=== PATIENT | male | born 1995 | race Two or more races ===

== ENCOUNTER 2019-11-08 14:26 | Emergency (ER) | payer BC ==
[~2019-11-08] VITALS: Ht 160 cm; Wt 60.0 kg
[2019-11-08] MEDS ORDERED: IV NORMAL SALINE 1000ML BAG 1,000 ML IV ONE (14:45)
--- NOTE | 2019-11-08 14:54 | PHYS DOC ---
General Adult EDM: Chief Complaint: ANXIETY/PANIC ATTACK HPI: HPI: Patient is a 23 year old male, brought to the emergency department by [facility] with complaints of his heart beating fast. Patient states that he has had problems with his heart beating fast for the last 3 months. In addition to palpitations the patient reports shortness of breath. He denies any chest pain, abdominal pain, nausea, vomiting, diarrhea, cough, fever, or diaphoresis. Patient admits that he does drink alcohol daily at least half a pint of whiskey. He last drank alcohol last night. Patient states he was diagnosed with some heart problems several years ago and was prescribed medi cation but stopped taking that medication 6 months ago because his primary care provider moved away. Patient states he is not sure what that medication or condition is. He reports that he smokes 2-3 cigarettes a day, he denies any elicit drug use. Review of Systems: Review of Systems: Constitutional: Denies fever or chills. [] Eyes: Denies change in visual acuity. [] HENT: Denies nasal congestion or sore throat. [] Respiratory: Denies cough or shortness of breath. [] Cardiovascular: Denies chest pain or edema; see HPI [] GI: Denies abdominal pain, nausea, vomiting, bloody stools or diarrhea. [] : Denies dysuria. [] Musculoskeletal: Denies back pain or joint pain. [] Integument: Denies rash. [] Neurologic: Denies headache, focal weakness or sensory changes. [] Endocrine: Denies polyuria or polydipsia. [] Lymphatic: Denies swollen glands. [] Psychiatric: Denies depression or anxiety. [] Heart Score: Risk Factors: Risk Factors: DM, Current or recent (<one month) smoker, HTN, HLP, family history of CAD, obesity. Risk Scores: Score 0 - 3: 2.5% MACE over next 6 weeks - Discharge Home Score 4 - 6: 20.3% MACE over next 6 weeks - Admit for Clinical Observation Score 7 - 10: 72.7% MACE over next 6 weeks - Early Invasive Strategies Current Medications: Current Medications Medications (Trade) Dose Ordered Sig/Daiana Start Time Stop Time Status Last Admin Dose Admin Sodium Chloride 1,000 ml @ 1,000 mls/hr 1X ONCE 11/08/19 14:45 11/08/19 15:44 Allergies: Allergies: Allergies Coded Allergies Type Severity Reaction Last Updated Verified No Known Drug Allergies 11/08/19 No Physical Exam: PE: Constitutional: Well developed, well nourished, no acute distress, non-toxic appearance, appears anxious. [] HENT: Normocephalic, atraumatic, bilateral external ears normal, nose normal. [] Eyes: PERRLA, EOMI, conjunctiva normal, no discharge. [] Neck: Normal range of motion, no stridor. [] Cardiovascular:Heart rate regular tachycardic rhythm, no murmur [] Lungs & Thorax: Bilateral breath sounds clear to auscultation, Respirations even and unlabored, no retractions, no respiratory distress [] Abdomen: soft, no tenderness, no masses, no pulsatile masses. [] Skin: Warm, dry, no erythema, no rash. [] Back: No tenderness Extremities: No cyanosis, no clubbing, ROM intact, no edema. [] Neurologic: Alert and oriented X 3, no focal deficits noted. [] Psychologic: Affect normal, judgement normal, mood normal. [] EKG: EK-sinus tachycardia, rate of 112, otherwise normal, no STEMI read by Dr. Flores [][] Radiology/Procedures: Radiology/Procedures: PROCEDURE: CHEST PA & LATERAL INDICATION: Shortness of air COMPARISON: None. FINDINGS: 2 view of chest obtained. Mild hazy opacity in the retrocardiac region. Cardiac silhouette is unremarkable. IMPRESSION: * Minimal hazy opacity in retrocardiac region. Could be secondary to atelectasis or early infiltrate [] Course & Med Decision Making: Course & Med Decision Making Pertinent Labs and Imaging studies reviewed. (See chart for details) Patient is a 23-year-old male who presents to the emergency department with complaints of palpitations and shortness of breath. His EKG revealed no acute findings. CBC is unremarkable, d-dimer is within normal limits, CMP reveals a potassium of 3.2, magnesium of 1.6, total bilirubin of 1.2, AST of 209, ALT of 101, troponin negative Urinalysis is unremarkable; drug screen is positive for cocaine, alcohol is less than 10. CXR reveals minimal hazy opacity in retrocardiac region. Could be secondary to atelectasis or early infiltrate VSS throughout visit. PT reports feeling better after IVF and ativan, Pt was given 40 meq of KCL and 400 mg of magnesium for hypokalemia and hypomagnesia I encouraged pt to follow up with PCP this week, return to the ER if symptoms worsen or fever develops. PT verbalized an understanding of home care, medications, follow-up, and return to ED instructions and was in agreement with the plan of care. [] Dragon Disclaimer: Dragon Disclaimer: This electronic medical record was generated, in whole or in part, using a voice recognition dictation system. Departure Departure Impression: Primary Impression: Heart palpitations Additional Impressions: Hypokalemia Hypomagnesemia Disposition: 01 HOME, SELF-CARE Condition: STABLE Patient Instructions: Hypokalemia-Brief, Palpitations, [id number] Additional Instructions: Follow up with a primary care doctor for further evaluation of your decreased appetite and palpitations, use the list provided to find a primary care doctor. Return to the ER if your symptoms worsen or you develop a fever. RICARDO BRANHAM [employer] MANAGER Nov 08, 2019 14:54
[2019-11-08 15:07] LABS: BASO % 1 % (0-3); EOS % 0 % (0-3); HEMATOCRIT 45.1 % (39.0-53.0); HEMOGLOBIN 15.5 g/dL (13.0-17.5); LYMPH # 1.6 x10^3/uL (1.0-4.8); LYMPH % 23 % (24-48); MEAN CORPUSCULAR HEMOGLOBIN 32 pg (25-35); MEAN CORPUSCULAR HGB CONC 34 g/dL (31-37); MEAN CORPUSCULAR VOLUME 93 fL (79-100); MONO # 0.4 x10^3/uL (0.0-1.1); MONO % 7 % (0-9); NEUT # 4.7 x10^3/uL (1.8-7.7); NEUT % 70 % (31-73); PLATELET COUNT 277 x10^3/uL (140-400); RED BLOOD COUNT 4.83 x10^6/uL (4.30-5.70); RED CELL DISTRIBUTION WIDTH 13.1 % (11.5-14.5); WHITE BLOOD COUNT 6.8 x10^3/uL (4.0-11.0)
[2019-11-08 15:17] LABS: CALCIUM 9.3 mg/dL (8.5-10.1); CREATININE 0.9 mg/dL (0.7-1.3); GFR 103.7; POTASSIUM 3.2 mmol/L (3.5-5.1)
[2019-11-08 15:25] LABS: ALBUMIN 4.2 g/dL (3.4-5.0); ALBUMIN/GLOBULIN RATIO 1.1 (1.0-1.7); MAGNESIUM 1.6 mg/dL (1.8-2.4); TOTAL BILIRUBIN 1.2 mg/dL (0.2-1.0)
[2019-11-08 15:32] LABS: CREATINE KINASE 115 U/L (39-308)
[2019-11-08] MEDS ORDERED: NAPROXEN 500 MG TABLET PO STA (16:18)
--- NOTE | 2019-11-08 16:42 | RAD ---
INDICATION: Shortness of air COMPARISON: None. FINDINGS: 2 view of chest obtained. Mild hazy opacity in the retrocardiac region. Cardiac silhouette is unremarkable. IMPRESSION: * Minimal hazy opacity in retrocardiac region. Could be secondary to atelectasis or early infiltrate Electronically signed by: Ranjan Ulloa MD (11/08/2019 4:40 PM) [id number]
[2019-11-08] MEDS ORDERED: POTASSIUM CHLORIDE 20 MEQ TABLET.ER. PO ONE (16:45)
[2019-11-08] MEDS ORDERED: MAGNESIUM OXIDE 400 MG TABLET PO SCH (16:45)
[2019-11-08 16:46] VITALS: BP 133/80
[2019-11-08 17:02] LABS: BARBITURATES NEG (NEG); BENZODIAZEPINES NEG (NEG); BILIRUBIN,URINE NEGATIVE (NEG); CANNABINOIDS NEG (NEG); CLARITY,URINE CLEAR; COCAINE POS (NEG); COLOR,URINE YELLOW; METHADONE NEG (NEG); NITRITE,URINE NEGATIVE (NEG); OPIATES NEG (NEG); PHENCYCLIDINE NEG (NEG); PROTEIN,URINE NEGATIVE (NEG-TRACE); UROBILINOGEN,URINE 0.2 mg/dL (0.2 mg/dL)
[2019-11-08 17:08] LABS: AMPHETAMINE/METHAMPHETAMINE NEG (NEG)
[2019-11-08 17:10] LABS: AMORPHOUS SEDIMENT,UR PRESENT /HPF; HYALINE CASTS, URINE FEW /HPF
[2019-11-08 17:11] LABS: BACTERIA,URINE 0 /HPF (0-FEW); RBC,URINE 0 /HPF (0-2); WBC,URINE 0 /HPF (0-4)
--- NOTE | 2019-11-09 11:15 | EKG ---
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
== END 2019-11-08 18:06 | disposition home or self-care (01) ==
LOC: ER 14:26 → EDBD 14:26 → ER 18:06
DX: R00.2 Palpitations (principal); E83.42 Hypomagnesemia; E87.6 Hypokalemia; R06.02 Shortness of breath; F17.210 Nicotine dependence, cigarettes, uncomplicated
CPT/HCPCS: 36415; 71046; 80053; 80307; 81001; 82553; 83735; 84484; 85025; 85379; 93005; 96374; 99285; G0480; J2060; J7030

== ENCOUNTER 2019-11-14 13:03 | Emergency (ER) | payer BC ==
[~2019-11-14] VITALS: Ht 162.6 cm; Wt 57.2 kg
[2019-11-14] MEDS ORDERED: ALPR0.254 PO (13:33)
--- NOTE | 2019-11-14 13:33 | PHYS DOC ---
Past Medical History Past Medical History: No Pertinent History Smoking Status: Current Some Day Smoker Alcohol Use: Occasionally General Adult EDM: Chief Complaint: DIZZY/LIGHT HEADED HPI: HPI: Patient is a 24-year-old otherwise healthy male who presents stating he has a hard time getting a deep breath. He does admit to being very anxious. He states he feels like his heart is beating fast he cannot get a deep breath and sometimes it even hurts when he takes a deep breath. He denies any dyspnea on exertion. He denies fever chills or sweats. He denies any upper respiratory symptoms such as a cough or congestion. He states he has been seen here once before for this and was supposed to get something for anxiety but never did. [] Review of Systems: Review of Systems: Constitutional: Denies fever or chills. [] Eyes: Denies change in visual acuity. [] HENT: Denies nasal congestion or sore throat. [] Respiratory: Reports that he has a difficult time getting a deep breath [] Cardiovascular: Palpitations as described in the HPI [] GI: Denies abdominal pain, nausea, vomiting, bloody stools or diarrhea. [] : Denies dysuria. [] Musculoskeletal: Denies back pain or joint pain. [] Integument: Denies rash. [] Neurologic: Denies headache, focal weakness or sensory changes. [] Endocrine: Denies polyuria or polydipsia. [] Lymphatic: Denies swollen glands. [] Psychiatric: Reports anxiety [] Heart Score: Risk Factors: Risk Factors: DM, Current or recent (<one month) smoker, HTN, HLP, family history of CAD, obesity. Risk Scores: Score 0 - 3: 2.5% MACE over next 6 weeks - Discharge Home Score 4 - 6: 20.3% MACE over next 6 weeks - Admit for Clinical Observation Score 7 - 10: 72.7% MACE over next 6 weeks - Early Invasive Strategies Allergies: Allergies: Allergies Coded Allergies Type Severity Reaction Last Updated Verified No Known Drug Allergies 11/08/19 No Physical Exam: PE: Constitutional: Well developed, well nourished, no acute distress, non-toxic appearance. [] HENT: Normocephalic, atraumatic, bilateral external ears normal, oropharynx moist, no oral exudates, nose normal. [] Eyes: PERRLA, EOMI, conjunctiva normal, no discharge. [] Neck: Normal range of motion, no tenderness, supple, no stridor. [] Cardiovascular:Heart rate regular rhythm, no murmur [] Lungs & Thorax: Bilateral breath sounds clear to auscultation [] Abdomen: Bowel sounds normal, soft, no tenderness, no masses, no pulsatile masses. [] Skin: Warm, dry, no erythema, no rash. [] Back: No tenderness, no CVA tenderness. [] Extremities: No tenderness, no cyanosis, no clubbing, ROM intact, no edema. [] Neurologic: Alert and oriented X 3, normal motor function, normal sensory function, no focal deficits noted. [] Psychologic: Extremely anxious. [] EKG: EKG: [] Radiology/Procedures: Radiology/Procedures: [] Course & Med Decision Making: Course & Med Decision Making Pertinent Labs and Imaging studies reviewed. (See chart for details) [ED course: Evaluation reveals a 24-year-old male that is extremely anxious. We will give him some alprazolam during his stay in the department here I will also give him a couple to take at home. I have encouraged him to follow-up with a primary care physician for ongoing care of his anxiety disorder] Richar Disclaimer: Richar Disclaimer: This electronic medical record was generated, in whole or in part, using a voice recognition dictation system. Departure Departure Impression: Primary Impression: Heart palpitations Additional Impression: Anxiety about health Disposition: 01 HOME, SELF-CARE Condition: STABLE Referrals: NO PCP (PCP) Patient Instructions: Anxiety and Panic Attacks, Palpitations Additional Instructions: It is very important that you follow-up with your primary care physician in the next 2 to 3 days for recheck. Scripts Alprazolam (ALPRAZOLAM) 0.25 Mg Tablet 0.5 MG PO PRN Q6HRS PRN for ANXIETY / AGITATION, #10 TAB 0 Refills Prov: KELLY PRECIADO DO 11/14/19 KELLY PRECIADO DO November 14, 2019 13:33
[2019-11-14] MEDS: ALPRAZolam 0.5 MG TABLET PO ONE (13:46)
[2019-11-14 14:05] VITALS: BP 145/71
== END 2019-11-14 14:05 | disposition home or self-care (01) ==
LOC: ER 13:03
DX: R00.2 Palpitations (principal); F41.9 Anxiety disorder, unspecified; F17.200 Nicotine dependence, unspecified, uncomplicated
CPT/HCPCS: 99283

== ENCOUNTER 2019-11-19 12:07 | Emergency (ER) | payer BC ==
[~2019-11-19] VITALS: Ht 162.6 cm; Wt 57.2 kg
[~2019-11-19 12:07] MED LIST: ALPR0.254 PO
[2019-11-19 12:45] VITALS: BP 153/102
--- NOTE | 2019-11-19 15:02 | PHYS DOC ---
Past Medical History Past Medical History: No Pertinent History Past Surgical History: No Surgical History Smoking Status: Never Smoker Alcohol Use: Occasionally Adult General Chief Complaint Chief Complaint: OTHER COMPLAINTS HPI HPI Patient is a 24 year old male with history of anxiety presents with palpitations throughout the day with associated chest pain. Patient was seen in the emergency department 5 days ago and prescribed Xanax. States Xanax has helped but he is now. Patient's not yet established with a primary care provider is requesting a refill. States chest pain is worse after eating. No shortness of breath nausea vomiting sweats. No abdominal pain. No HI/SI/Hallucinations/delusions/paranoia. No other acute symptoms or complaints. [] Review of Systems Review of Systems ROS as per HPI All other systems were reviewed and found to be within normal limits, except as documented in this note. Allergies Allergies Allergies Coded Allergies Type Severity Reaction Last Updated Verified No Known Drug Allergies 11/08/19 No Physical Exam Physical Exam Constitutional: Well developed, well nourished, no acute distress, non-toxic appearance. [] HENT: Normocephalic, atraumatic, bilateral external ears normal, oropharynx moist, no oral exudates, nose normal. [] Eyes: PERRLA, EOMI, conjunctiva normal, no discharge. [] Neck: Normal range of motion, no tenderness, supple, no stridor. [] Cardiovascular:Heart rate regular rhythm, no murmur [] Lungs & Thorax: Bilateral breath sounds clear to auscultation [] Abdomen: Bowel sounds normal, soft, no tenderness. [] Skin: Warm, dry. [] Back: No tenderness. [] Extremities: No tenderness. [] Neurologic: Alert and oriented X 3, normal motor function, normal sensory function, no focal deficits noted. [] Psychologic: Affect anxious, judgement normal, mood normal. [] Current Patient Data Vital Signs Vital Signs Date Time Temp Pulse Resp B/P (MAP) Pulse Ox O2 Delivery O2 Flow Rate FiO2 11/19/19 12:45 98.3 87 18 153/102 (119) 98 Room Air 98.3 EKG EKG [] Radiology/Procedures Radiology/Procedures [] Course & Med Decision Making Course & Med Decision Making Pertinent Labs and Imaging studies reviewed. (See chart for details) [Patient instructed to follow-up with his PCP for further management of anxiety.] Dragon Disclaimer Dragon Disclaimer This electronic medical record was generated, in whole or in part, using a voice recognition dictation system. Departure Departure Impression: Primary Impression: Medication requested by patient but not prescribed or administ... Disposition: HOME, SELF-CARE Condition: STABLE Patient Instructions: Medication Refill, Emergency Department Additional Instructions: Please follow up with you local PCP for management of your anxiety. JORDON AWAD DO November 19, 2019 15:02
== END 2019-11-19 14:04 | disposition home or self-care (01) ==
LOC: ER 12:07
DX: R07.89 Other chest pain (principal); R00.2 Palpitations
CPT/HCPCS: 99281

== ENCOUNTER → 2020-01-05 | Outpatient (CLI) | payer BC ==
--- NOTE | 2020-01-05 16:03 | KCIC ---
EXAM: CHEST PA LATERAL INDICATION: Reason: UPPER CHEST PAIN, SOA, X'S 2 MONTHS / Spl. Instructions: / History: . TECHNIQUE: PA and lateral views COMPARISON: 11/08/2019 chest x-ray FINDINGS: The heart size is normal. The great vessels appear unremarkable. There is no hilar or mediastinal mass. The lungs are clear. There is no pleural effusion or pneumothorax. There are no significant osseous abnormalities. IMPRESSION: No active cardiopulmonary disease. Electronically signed by: Alicia Weiss MD (01/05/2020 4:00 PM) [id number]
== END | disposition home or self-care (01) ==
LOC: KCIC 15:05
PROVIDERS: ATTEND Family Medicine
DX: R07.89 Other chest pain (principal)
CPT/HCPCS: 71046

== ENCOUNTER 2020-02-19 23:55 | Emergency (ER) | payer BC ==
[~2020-02-19] VITALS: Ht 162.6 cm; Wt 57.2 kg
--- NOTE | 2020-02-20 01:41 | PHYS DOC ---
Past Medical History Past Medical History: Hypertension, Other Additional Past Medical Histor: PALPITATIONS Past Surgical History: No Surgical History Smoking Status: Never Smoker Alcohol Use: None General Adult EDM: Chief Complaint: Palpitations HPI: HPI: Patient is a 24 year old male who presents with complaints of palpitations. Patient states that for months now he has been having intermittent episodes of palpitations. He describes them as intermittent, lasting anywhere from a few minutes to as much as 30minutes and not associated with syncope. Patient reports that he has been seen by Dr. Evans and had a Holter monitor placed but has not had the report returned to him. He thought that the Holter was not on long enough to be diagnostic. This evening patient had another episode of palpitations. Patient stated that he also had a sense of doom, felt hot and got nauseated. Patient reports however this resolved and at this time he is without any pain, shortness of breath or palpitations. Review of Systems: Review of Systems: Constitutional: Denies fever or chills. [] Eyes: Denies change in visual acuity. [] HENT: Denies nasal congestion or sore throat. [] Respiratory: Denies cough or shortness of breath. [] Cardiovascular: Denies chest pain or edema. [] GI: Denies abdominal pain, nausea, vomiting, bloody stools or diarrhea. [] : Denies dysuria. [] Musculoskeletal: Denies back pain or joint pain. [] Integument: Denies rash. [] Neurologic: Denies headache, focal weakness or sensory changes. [] Endocrine: Denies polyuria or polydipsia. [] Lymphatic: Denies swollen glands. [] Psychiatric: Denies depression or anxiety. [] Heart Score: Risk Factors: Risk Factors: DM, Current or recent (<one month) smoker, HTN, HLP, family history of CAD, obesity. Risk Scores: Score 0 - 3: 2.5% MACE over next 6 weeks - Discharge Home Score 4 - 6: 20.3% MACE over next 6 weeks - Admit for Clinical Observation Score 7 - 10: 72.7% MACE over next 6 weeks - Early Invasive Strategies Allergies: Allergies: Allergies Coded Allergies Type Severity Reaction Last Updated Verified No Known Drug Allergies 11/08/19 No Physical Exam: PE: Constitutional: Well developed, well nourished, no acute distress, non-toxic appearance. [] HENT: Normocephalic, atraumatic, bilateral external ears normal, oropharynx moist, no oral exudates, nose normal. [] Eyes: PERRLA, EOMI, conjunctiva normal, no discharge. [] Neck: Normal range of motion, no tenderness, supple, no stridor. [] Cardiovascular:Heart rate regular rhythm, no murmur [] Lungs & Thorax: Bilateral breath sounds clear to auscultation [] Abdomen: Bowel sounds normal, soft, no tenderness, no masses, no pulsatile masses. [] Skin: Warm, dry, no erythema, no rash. [] Back: No tenderness, no CVA tenderness. [] Extremities: No tenderness, no cyanosis, no clubbing, ROM intact, no edema. [] Neurologic: Alert and oriented X 3, normal motor function, normal sensory function, no focal deficits noted. [] Psychologic: Affect flat, judgement normal, mood anxious. [] Current Patient Data: Vital Signs: Vital Signs Date Time Temp Pulse Resp B/P (MAP) Pulse Ox O2 Delivery O2 Flow Rate FiO2 02/20/20 00:35 98.5 83 20 134/80 (98) 99 Room Air 98.5 EKG: EKG: Heart rate 75 bpm, normal intervals, normal axis, normal sinus rhythm, normal ECG [] Radiology/Procedures: Radiology/Procedures: [] Course & Med Decision Making: Course & Med Decision Making Pertinent Labs and Imaging studies reviewed. (See chart for details) 0252-patient was seen and reevaluated. Patient is remained stable throughout his hospitalization here and on the monitoring analyst is been no evidence of any a arrhythmia. I reviewed his medical record and talk to him. He is apparently in November was suffering from Graves' disease and is currently on methimazole and propanolol. I think at this time he is actually doing well. The TSH was 4.3 which is slightly elevated suggesting that he is no longer suffering from this problem. I think he may be suffering from anxiety and I discussed this with him as well. I discussed reasons to return, treatment plan and need for follow-up. [] Dragon Disclaimer: Richar Disclaimer: This electronic medical record was generated, in whole or in part, using a voice recognition dictation system. Departure Departure Impression: Primary Impression: Heart palpitations Additional Impressions: Panic attacks Graves disease Disposition: HOME, SELF-CARE Condition: STABLE Referrals: Sabiha GIBSON MD (PCP) Patient Instructions: Anxiety and Panic Attacks, Palpitations Scripts Alprazolam (XANAX) 0.5 Mg Tablet 0.5 MG PO PRN Q6HRS PRN for ANXIETY / AGITATION, #10 TAB 0 Refills Prov: ALANA MORA MD 02/20/20 Justicifation of Admission Dx: Justifications for Admission: Justification of Admission Dx: N/A ALANA MORA MD Feb 20, 2020 01:41
[2020-02-20 01:47] LABS: BASO % 1 % (0-3); EOS # 0.1 x10^3/uL (0.0-0.7); EOS % 1 % (0-3); HEMATOCRIT 42.7 % (39.0-53.0); HEMOGLOBIN 14.7 g/dL (13.0-17.5); LYMPH # 2.7 x10^3/uL (1.0-4.8); LYMPH % 31 % (24-48); MEAN CORPUSCULAR HEMOGLOBIN 31 pg (25-35); MEAN CORPUSCULAR HGB CONC 34 g/dL (31-37); MEAN CORPUSCULAR VOLUME 90 fL (79-100); MONO # 0.8 x10^3/uL (0.0-1.1); MONO % 9 % (0-9); NEUT # 5.2 x10^3/uL (1.8-7.7); NEUT % 59 % (31-73); PLATELET COUNT 312 x10^3/uL (140-400); RED BLOOD COUNT 4.76 x10^6/uL (4.30-5.70); RED CELL DISTRIBUTION WIDTH 12.1 % (11.5-14.5); WHITE BLOOD COUNT 8.9 x10^3/uL (4.0-11.0)
[2020-02-20 01:59] LABS: CALCIUM 8.6 mg/dL (8.5-10.1); CREATININE 0.9 mg/dL (0.7-1.3); GFR 102.8; POTASSIUM 3.4 mmol/L (3.5-5.1)
[2020-02-20 02:05] LABS: ALBUMIN 3.7 g/dL (3.4-5.0); TOTAL BILIRUBIN 0.3 mg/dL (0.2-1.0); TOTAL PROTEIN 7.3 g/dL (6.4-8.2)
--- NOTE | 2020-02-20 02:20 | RAD ---
INDICATION: Reason: Palpitations / Spl. Instructions: / History: COMPARISON: January 05, 2020 FINDINGS: 2 view of chest obtained. No focal airspace consolidation. Cardiomediastinal contour unremarkable. No acute osseous abnormality. IMPRESSION: * No focal airspace consolidation or edema. Electronically signed by: Ranjan Ulloa MD (02/20/2020 2:17 AM) [id number]
[2020-02-20] MEDS ORDERED: ALPR0.5T PO (02:41)
[2020-02-20 02:53] VITALS: BP 117/79
--- NOTE | 2020-02-23 05:21 | EKG ---
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
== END 2020-02-20 03:18 | disposition home or self-care (01) ==
LOC: ER 23:55
DX: R00.2 Palpitations (principal); F41.0 Panic disorder [episodic paroxysmal anxiety]; E05.00 Thyrotoxicosis with diffuse goiter without thyrotoxic crisis or storm; I10 Essential (primary) hypertension
CPT/HCPCS: 36415; 71046; 80053; 84443; 84484; 85025; 99285-25

== ENCOUNTER → 2020-04-14 | Outpatient (CLI) | payer BC ==
[~2020-04-14] MED LIST changes: +ALPR0.5T PO
--- NOTE | 2020-04-15 08:35 | CARD ---
MR#: [id number] Date of Study: 04/14/2020 Ordering Physician: PHILIPPE EVANS, Referring Physician: PHILIPPE EVANS, Tech: Mikaela Marlow APPROVED REPORT EXAM: Two-dimensional and M-mode echocardiogram with Doppler and color Doppler. Other Information Quality : GoodHR: 70bpm INDICATION Palpitations 2D DIMENSIONS RVDd3.4 (2.9-3.5cm)Left Atrium(2D)2.8 (1.6-4.0cm) IVSd0.7 (0.7-1.1cm)Aortic Root(2D)3.1 (2.0-3.7cm) LVDd4.9 (3.9-5.9cm)LVOT Diameter2.0 (1.8-2.4cm) PWd0.9 (0.7-1.1cm)LVDs3.1 (2.5-4.0cm) FS (%) 36.0 %SV73.7 ml LVEF(%)65.4 (>50%) Aortic Valve AoV Peak Ronni.97.3cm/sAoV VTI17.4cm AO Peak GR.3.8mmHgLVOT Peak Ronni.81.6cm/s LVOT VTI 15.48cmAO Mean GR.2mmHg MARYJO (VMAX)2.63oz4MIK (VTI)2.85cm2 Mitral Valve MV E Uhyqxnih56.4cm/sMV DECEL [id number] MV A Cstbdviw75.4cm/sMV E Mean Gr.1mmHg MV ISR48rmM/A Ratio1.5 MVA (PHT)3.74cm2 TDI E/Lateral E'5.2E/Medial E'9.8 Pulmonary Valve PV Peak Rocturuo80.0cm/sPV Peak Grad.2mmHg Tricuspid Valve TR P. Ojdzsjrg075gz/sRAP [id number] TR Peak Gr.49qhCrSSDL61qdRd Pulmonary Vein S1 Kzsrkerp62.7cm/sD2 Okztydks72.4cm/s PVa ojdjoxnx259hupw LEFT VENTRICLE The left ventricle is normal size. There is normal left ventricular wall thickness. The left ventricu lar systolic function is normal and the ejection fraction is within normal range. The Ejection Fracti on is 55%. There is normal LV segmental wall motion. Transmitral Doppler flow pattern is Grade II-pse udonormal filling dynamics. RIGHT VENTRICLE The right ventricle is normal size. There is normal right ventricular wall thickness. The right ventr icular systolic function is normal. ATRIA The left atrium size is normal. The right atrium size is normal. The interatrial septum is intact wit h no evidence for an atrial septal defect or patent foramen ovale as noted on 2-D or Doppler imaging. AORTIC VALVE The aortic valve is normal in structure and function. Doppler and Color Flow revealed no significant aortic regurgitation. There is no significant aortic valvular stenosis. Calculated aortic valve area is 2.79 cm2 with maximum pressure gradient of 4 mmHg and mean pressure gradient of 2 mmHg. MITRAL VALVE The mitral valve is normal in structure and function. There is no evidence of mitral valve prolapse. There is no mitral valve stenosis. Doppler and Color-flow revealed trace mitral regurgitation. TRICUSPID VALVE The tricuspid valve is normal in structure and function. Doppler and Color Flow revealed trace tricus pid regurgitation with an estimated PAP of 21 mmHg. There is no tricuspid valve stenosis. PULMONIC VALVE The pulmonary valve is normal in structure and function. Doppler and Color Flow revealed trace pulmon ic valvular regurgitation. There is no pulmonic valvular stenosis. GREAT VESSELS The aortic root is normal in size. The ascending aorta is normal in size. The IVC is normal in size a nd collapses >50% with inspiration. PERICARDIAL EFFUSION There is no evidence of significant pericardial effusion. Critical Notification Critical Value: No <Conclusion> The left ventricular systolic function is normal and the ejection fraction is within normal range. Th e Ejection Fraction is 55%. There is normal LV segmental wall motion. Signed by : Philippe Evans, Electronically Approved : 04/15/2020 08:34:35
== END ==
LOC: ECHO 14:05
PROVIDERS: ATTEND Internal Medicine Cardiovascular Disease
DX: R00.2 Palpitations (principal)
CPT/HCPCS: 93306

== ENCOUNTER 2020-04-28 16:56 | Emergency (ER) | payer BC ==
[~2020-04-28] VITALS: Ht 162.6 cm; Wt 57.2 kg
[2020-04-28] MEDS ORDERED: IV NORMAL SALINE 1000ML BAG 1,000 ML IV ONE (17:30)
[2020-04-28 17:33] LABS: BASO % 1 % (0-3); EOS % 0 % (0-3); HEMATOCRIT 42.7 % (39.0-53.0); HEMOGLOBIN 14.8 g/dL (13.0-17.5); LYMPH # 1.3 x10^3/uL (1.0-4.8); LYMPH % 23 % (24-48); MEAN CORPUSCULAR HEMOGLOBIN 32 pg (25-35); MEAN CORPUSCULAR HGB CONC 35 g/dL (31-37); MEAN CORPUSCULAR VOLUME 92 fL (79-100); MONO # 0.5 x10^3/uL (0.0-1.1); MONO % 9 % (0-9); NEUT # 3.8 x10^3/uL (1.8-7.7); NEUT % 67 % (31-73); PLATELET COUNT 305 x10^3/uL (140-400); RED BLOOD COUNT 4.66 x10^6/uL (4.30-5.70); RED CELL DISTRIBUTION WIDTH 14.6 % (11.5-14.5); WHITE BLOOD COUNT 5.7 x10^3/uL (4.0-11.0)
--- NOTE | 2020-04-28 17:41 | PHYS DOC ---
Past Medical History Past Medical History: Hypertension, Other Additional Past Medical Histor: PALPITATIONS Past Surgical History: No Surgical History Smoking Status: Never Smoker Alcohol Use: None General Adult EDM: Chief Complaint: RAPID HEART RATE HPI: HPI: Patient is a 24 year old male with a history of hypertension, graves disease who presents to the ED today complaining of palpitations that began after he took propranolol and methimazole. He states he does not know what he takes the methimazole for but has been taking it for 3 months. He states his chest was hurting during this palpitations, he rates his chest pain as mild and intermittent worse on deep breaths. Denies any fever. He states he feels like hurting people, when asked what he means by this, he states he feels like punching some people. Denies any suicidal ideations. Review of Systems: Review of Systems: Constitutional: Denies fever or chills. [] Eyes: Denies change in visual acuity. [] HENT: Denies nasal congestion or sore throat. [] Respiratory: Denies cough or shortness of breath. [] Cardiovascular: Reports palpitations or chest pain GI: Denies abdominal pain, nausea, vomiting, bloody stools or diarrhea. [] : Denies dysuria. [] Musculoskeletal: Denies back pain or joint pain. [] Integument: Denies rash. [] Neurologic: Denies headache, focal weakness or sensory changes. [] Psychiatric: Reports feeling to punch people Heart Score: Risk Factors: Risk Factors: DM, Current or recent (<one month) smoker, HTN, HLP, family history of CAD, obesity. Risk Scores: Score 0 - 3: 2.5% MACE over next 6 weeks - Discharge Home Score 4 - 6: 20.3% MACE over next 6 weeks - Admit for Clinical Observation Score 7 - 10: 72.7% MACE over next 6 weeks - Early Invasive Strategies Current Medications: Current Medications Medications (Trade) Dose Ordered Sig/Daiana Start Time Stop Time Status Last Admin Dose Admin Sodium Chloride 1,000 ml @ 1,000 mls/hr 1X ONCE 04/28/20 17:30 04/28/20 18:29 Allergies: Allergies: Allergies Coded Allergies Type Severity Reaction Last Updated Verified No Known Drug Allergies 11/08/19 No Physical Exam: PE: Constitutional: Well developed, well nourished, no acute distress, non-toxic appearance. [] HENT: Normocephalic, atraumatic, bilateral external ears normal, oropharynx moist, no oral exudates, nose normal. [] Eyes: PERRLA, EOMI, conjunctiva normal, no discharge. [] Neck: Normal range of motion, no tenderness, supple, no stridor. [] Cardiovascular:Heart rate regular rhythm, no murmur [] Lungs & Thorax: Bilateral breath sounds clear to auscultation [] Abdomen: Bowel sounds normal, soft, no tenderness, no masses, no pulsatile masses. [] Skin: Warm, dry, no erythema, no rash. [] Back: No tenderness, no CVA tenderness. [] Extremities: No tenderness, no cyanosis, no clubbing, ROM intact, no edema. [] Neurologic: Alert and oriented X 3, normal motor function, normal sensory function, no focal deficits noted. [] Psychologic: Flat affect Current Patient Data: Labs: Laboratory Tests Test 04/28/20 17:20 White Blood Count 5.7 x10^3/uL (4.0-11.0) Red Blood Count 4.66 x10^6/uL (4.30-5.70) Hemoglobin 14.8 g/dL (13.0-17.5) Hematocrit 42.7 % (39.0-53.0) Mean Corpuscular Volume 92 fL (79-100) Mean Corpuscular Hemoglobin 32 pg (25-35) Mean Corpuscular Hemoglobin Concent 35 g/dL (31-37) Red Cell Distribution Width 14.6 % (11.5-14.5) H Platelet Count 305 x10^3/uL (140-400) Neutrophils (%) (Auto) 67 % (31-73) Lymphocytes (%) (Auto) 23 % (24-48) L Monocytes (%) (Auto) 9 % (0-9) Eosinophils (%) (Auto) 0 % (0-3) Basophils (%) (Auto) 1 % (0-3) Neutrophils # (Auto) 3.8 x10^3/uL (1.8-7.7) Lymphocytes # (Auto) 1.3 x10^3/uL (1.0-4.8) Monocytes # (Auto) 0.5 x10^3/uL (0.0-1.1) Eosinophils # (Auto) 0.0 x10^3/uL (0.0-0.7) Basophils # (Auto) 0.0 x10^3/uL (0.0-0.2) Laboratory Tests 04/28/20 17:20 EKG: EKG: [] Radiology/Procedures: Radiology/Procedures: []PROCEDURE: PORTABLE CHEST 1V EXAM: CHEST ONE VIEW. HISTORY: Palpitations. COMPARISON: 02/20/2020. FINDINGS: A frontal view of the chest is obtained. There are no confluent infiltrates. There is no pneumothorax or pleural effusion. The heart is not enlarged. IMPRESSION: 1. No confluent infiltrates. Electronically signed by: Tomy Ahuja MD (04/28/2020 6:06 PM) [facility] DICTATED and SIGNED BY: LUCINDA AHUJA MD DATE: 04/28/201805 Course & Med Decision Making: Course & Med Decision Making Pertinent Labs and Imaging studies reviewed. (See chart for details) This is a 24-year-old male patient who presents to the ED today complaining of palpitations that began after taking propranolol and methimazole. Has been on this medication for a while. Patient has history of Graves' disease and hypertension He also states he would feels like punching people when asked about suicidal ideation or homicidal ideations. PAT team was consulted and talked to patient. TSH 0.401 Patient's EKG was normal, he was on the monitor for quite some time, we did not see any irregular heartbeat. CBC no acute findings, CMP with AST of 88, alcohol level of 35, patient reports drinking 5 beers every day. Had alcohol prior to coming to the ED. PAT team talked to him about this. D/c to home. F/u with patient PCP next week [place] Disclaimer: Dragon Disclaimer: This electronic medical record was generated, in whole or in part, using a voice recognition dictation system. Departure Departure Impression: Primary Impression: ETOH abuse Additional Impression: Palpitations Disposition: 01 DC HOME SELF CARE/HOMELESS Condition: STABLE Referrals: Sabiha GIBSON MD (PCP) follow up next week Patient Instructions: Alcohol Problems, Palpitations, [id number] Additional Instructions: You were evaluated in the emergency room, there is nothing acute in your work-up today, please consider following up to get help for alcohol use. MONI BOOTHE APRN Apr 28, 2020 17:41
[2020-04-28 17:44] LABS: PROTHROMBIN TIME PATIENT 13.6 SEC (11.7-14.0)
[2020-04-28 17:45] LABS: CREATININE 0.7 mg/dL (0.7-1.3); GFR 137.4; POTASSIUM 3.9 mmol/L (3.5-5.1)
[2020-04-28 17:51] LABS: ALBUMIN 4.1 g/dL (3.4-5.0); ALBUMIN/GLOBULIN RATIO 1.2 (1.0-1.7); MAGNESIUM 2.1 mg/dL (1.8-2.4); TOTAL BILIRUBIN 0.7 mg/dL (0.2-1.0); TOTAL PROTEIN 7.6 g/dL (6.4-8.2)
--- NOTE | 2020-04-28 17:52 | EKG ---
[facility] [address] [place] [id number] Test Date: 2020-04-28 Test Time: 17:16:12 Pat Name: JOEY PLAZA Department: Room: Gender: M Technical Consultant: : [id number] Requested By: MONI BOOTHE Order Number: [id number] Reading MD: Measurements Intervals [place] Rate: 80 P: 38 OR: 160 QRS: 76 QRSD: 88 T: 42 QT: 362 QTc: 421 Interpretive Statements SINUS RHYTHM NO SPECIFIC ECG ABNORMALITIES RI6.02 No previous ECG available for comparison
--- NOTE | 2020-04-28 18:09 | RAD ---
EXAM: CHEST ONE VIEW. HISTORY: Palpitations. COMPARISON: 02/20/2020. FINDINGS: A frontal view of the chest is obtained. There are no confluent infiltrates. There is no pneumothorax or pleural effusion. The heart is not enlarged. IMPRESSION: 1. No confluent infiltrates. Electronically signed by: Tomy Ahuja MD (04/28/2020 6:06 PM) [facility]
[2020-04-28 18:40] LABS: BILIRUBIN,URINE NEGATIVE (NEG); CLARITY,URINE CLEAR; COLOR,URINE YELLOW; NITRITE,URINE NEGATIVE (NEG); PROTEIN,URINE NEGATIVE (NEG-TRACE); UROBILINOGEN,URINE 0.2 mg/dL (0.2 mg/dL)
[2020-04-28 18:44] LABS: BACTERIA,URINE 0 /HPF (0-FEW); RBC,URINE 0 /HPF (0-2); WBC,URINE 0 /HPF (0-4)
[2020-04-28 18:47] LABS: AMPHETAMINE/METHAMPHETAMINE NEG (NEG); BARBITURATES NEG (NEG); BENZODIAZEPINES NEG (NEG); CANNABINOIDS NEG (NEG); COCAINE NEG (NEG); METHADONE NEG (NEG); OPIATES NEG (NEG); PHENCYCLIDINE NEG (NEG)
[2020-04-28 20:43] VITALS: BP 120/77
== END 2020-04-28 21:14 | disposition home or self-care (01) ==
LOC: ER 16:56
DX: F10.10 Alcohol abuse, uncomplicated (principal); R07.89 Other chest pain; R00.2 Palpitations; I10 Essential (primary) hypertension
CPT/HCPCS: 36415; 71045; 80053; 80307; 81001; 83690; 83735; 83880; 84443; 84484; 85025; 85610; 93005; 96360; 99285; G0480; J7030